=== PATIENT | female | born 1990 | race Caucasian/White ===

== ENCOUNTER 2016-10-16 23:53 | Emergency (ER) | payer OTHER ==
[~2016-10-16] VITALS: Ht 160 cm; Wt 69.6 kg
[~2016-10-16 23:53] MED LIST: AMOXICILLIN500 MG PO; BACTRIM DS1 TAB PO; CIPROFLOXACIN500 M1 PO; CIPROFLOXACN500 MG PO; DARVOCET-N 100100 MG OR; FLUZONE SPLT1 M1 IM; FOLIC ACID1 MG OR; IBUPROFEN600 MG PO; LORTAB 7.5-3251 TAB PO; LORTAB 7.57.5 MG PO; MACRODANTIN100 MG OR; METRONIDAZOL500 MG PO; NAPROSYN500 MG OR; NAPROSYN500 MG PO; NO MEDS; NORCO1 TA2 PO; NYSTATIN TOP; OBTREX DHA PO; PRE-NATAL OR; PRENATA3 OR; PRENATAL1 TA1 PO; SPRINTEC 2828 DAY PO; TORADOL OR; TRIAM/NYSTAT TOP; TUBERSOL5 MG/0.1 M ID; ULTRAM50 M1 PO; ULTRAM50 MG OR; VISTARIL50 MG PO; ZOFRAN ODT4 MG PO; ZOFRAN4 MG/TAB PO
[2016-10-17] MEDS ORDERED: TRAMADOL HYDROC50 MG PO (00:30)
[2016-10-17] MEDS ORDERED: MOTRIN800 MG PO (00:30)
[2016-10-17 00:40] VITALS: BP 112/76
== END 2016-10-17 00:44 | disposition home or self-care (01) | DRG 552 ==
LOC: ED 23:53
DX: M54.42 Lumbago with sciatica, left side (principal); M54.41 Lumbago with sciatica, right side

== ENCOUNTER 2017-01-17 11:49 | Emergency (ER) | payer SELFPAY ==
[~2017-01-17] VITALS: Ht 160 cm; Wt 68.8 kg
[~2017-01-17 11:49] MED LIST changes: +MOTRIN800 MG PO; +TRAMADOL HYDROC50 MG PO
[2017-01-17] MEDS ORDERED: FIORICET PO (12:13)
[2017-01-17 12:50] VITALS: BP 97/64
== END 2017-01-17 12:55 | disposition home or self-care (01) | DRG 103 ==
LOC: ED 11:49
DX: G43.909 Migraine, unspecified, not intractable, without status migrainosus (principal); H53.143 Visual discomfort, bilateral; R11.0 Nausea; R42 Dizziness and giddiness

== ENCOUNTER 2017-06-14 08:06 | Day surgery (SDC) | payer OTHER ==
[~2017-06-14] VITALS: Ht 160 cm; Wt 68.0 kg
[~2017-06-14 08:06] MED LIST changes: +FIORICET PO
[2017-06-14 10:16] VITALS: BP 99/55
== END 2017-06-14 10:45 | disposition home or self-care (01) | DRG 395 ==
LOC: ORM 08:06
PROVIDERS: ATTEND Surgery
DX: K43.9 Ventral hernia without obstruction or gangrene (principal); R10.32 Left lower quadrant pain; Z53.21 Procedure and treatment not carried out due to patient leaving prior to being seen by health care provider

== ENCOUNTER 2017-07-27 15:32 | Emergency (ER) | payer OTHER ==
[~2017-07-27] VITALS: Ht 160 cm; Wt 68.2 kg
[2017-07-27 16:42] LABS: HEMATOCRIT 41.7 % (37.0-47.0); HEMOGLOBIN 14.6 g/dl (12.0-16.0); IMMATURE GRANULOCYTES 0.4 % (0.0-1.0); MEAN CELL VOLUME 90.8 fL CALC (80.0-100.0); MEAN CORPUSCULAR HGB 31.8 pG CALC (26.0-32.0); NEUT# 4.72 thou/uL (2.00-7.15); RED BLOOD COUNT 4.59 mill/uL (4.20-5.60); RED CELL DISTRI WIDTH 12.2 % (11.5-15.5)
[2017-07-27 16:48] LABS: URINE BILIRUBIN - DIPSTICK NEGATIVE (NEGATIVE); URINE BLOOD DIPSTICK NEGATIVE (NEGATIVE); URINE COLOR YELLOW; URINE GLUCOSE - DIPSTICK NEGATIVE (NEGATIVE); URINE KETONE NEGATIVE (NEGATIVE); URINE LEUK ESTERASE NEGATIVE (NEGATIVE); URINE NITRITE - DIPSTICK NEGATIVE (Negative); URINE PH 5.5 (4.5-8.0); URINE PROTEIN - DIPSTICK NEGATIVE (NEG-TRACE); URINE SPECIFIC GRAVITY >=1.030; URINE UROBILINOGEN - DIPSTICK 0.2 E.U./dL (0.2)
[2017-07-27 16:50] LABS: URINE CLARITY CLEAR
[2017-07-27 16:51] LABS: BARBITURATES NEGATIVE (NEGATIVE); COCAINE NEGATIVE (NEGATIVE); METHADONE NEGATIVE (NEGATIVE); OXCYCODONE NEGATIVE (NEGATIVE); TETRAHYDROCANNABIONOL NEGATIVE (NEGATIVE); TRICYLIC ANTIDEPRESSANTS NEGATIVE (NEGATIVE)
[2017-07-27 19:18] LABS: ALBUMIN 4.9 g/dL (3.2-5.0); ALKALINE PHOSPHATASE 69 u/l (38-126); ANION GAP 16 (6-22 (CALC)); BILIRUBIN, TOTAL 0.6 mg/dL (0.0-1.4); BUN 11 mg/dL (7-17); BUN/CREATININE RATIO 17 (12-20 (CALC)); CARBON DIOXIDE 24 mmol/l (22-30); CHLORIDE 109 mmol/l (95-108); CREATININE 0.6 mg/dL (0.5-1.0); GFR > 60 ML/MIN (>=60 (CALC)); GFR FOR AFR.AMER. > 60 ML/MIN (>=60 (CALC)); POTASSIUM 4.1 mmol/l (3.5-5.1); SGOT/AST 25 u/l (14-36); SGPT/ALT 33 u/l (9-52); SODIUM 145 mmol/l (137-146); TOTAL PROTEIN 7.5 g/dL (6.3-8.2)
[2017-07-27 22:00] VITALS: BP 117/60
== END 2017-07-27 22:02 | disposition home or self-care (01) | DRG 395 ==
LOC: ED 15:32
PROVIDERS: Emergency Medicine
DX: K43.9 Ventral hernia without obstruction or gangrene (principal); R10.33 Periumbilical pain; R11.0 Nausea; R19.7 Diarrhea, unspecified
CPT/HCPCS: Q9967

== ENCOUNTER 2017-09-06 06:54 | Day surgery (SDC) | payer OTHER ==
[~2017-09-06] VITALS: Ht 160 cm; Wt 65.8 kg
[2017-09-06] MEDS ORDERED: MOTRIN800 MG PO (09:51)
[2017-09-06] MEDS ORDERED: PERCOCET 5/325M1 TAB PO (09:52)
[2017-09-06 10:22] VITALS: BP 100/65
== END 2017-09-06 10:58 | disposition home or self-care (01) | DRG 355 ==
LOC: ORM 06:54
PROVIDERS: ATTEND Surgery
PROC: 0WUF4JZ Supplement Abdominal Wall with Synthetic Substitute, Percutaneous Endoscopic Approach (ICD-10-PCS; principal; 2017-09-06)
DX: K43.0 Incisional hernia with obstruction, without gangrene (principal); F41.9 Anxiety disorder, unspecified; Z87.891 Personal history of nicotine dependence

== ENCOUNTER 2018-04-08 15:24 | Emergency (ER) | payer OTHER ==
[~2018-04-08] VITALS: Ht 160 cm; Wt 70.0 kg
[~2018-04-08 15:24] MED LIST changes: +PERCOCET 5/325M1 TAB PO
[2018-04-08] MEDS ORDERED: PAROXETINE10 MG PO (15:40)
[2018-04-08] MEDS ORDERED: NAPROSYN500 MG PO (16:41)
[2018-04-08] MEDS ORDERED: TYLENOL # 31 TA1 PO (16:41)
[2018-04-08 16:50] VITALS: BP 103/74
== END 2018-04-08 16:50 | disposition home or self-care (01) ==
LOC: ED 15:24
DX: S80.01XA Contusion of right knee, initial encounter (principal); F32.9 Major depressive disorder, single episode, unspecified; F41.9 Anxiety disorder, unspecified; W10.9XXA Fall (on) (from) unspecified stairs and steps, initial encounter; Y92.009 Unspecified place in unspecified non-institutional (private) residence as the place of occurrence of the external cause

== ENCOUNTER 2018-07-18 06:23 | Day surgery (SDC) | payer OTHER ==
[~2018-07-18 06:23] MED LIST changes: +PAROXETINE10 MG PO; +TYLENOL # 31 TA1 PO; +[UNRECOGNIZED DRUG - REMARK]
[2018-07-18] MEDS ORDERED: MOTRIN800 MG PO (09:39)
[2018-07-18] MEDS ORDERED: PERCOCET 5/325M1 TAB PO (09:39)
[2018-07-18 10:31] VITALS: BP 107/63
== END 2018-07-18 10:38 | disposition home or self-care (01) ==
LOC: ORM 06:23
PROVIDERS: ATTEND Surgery
DX: K43.0 Incisional hernia with obstruction, without gangrene (principal)
CPT/HCPCS: J0131; J2710

== ENCOUNTER 2019-05-15 20:41 | Emergency (ER) | payer OTHER ==
[~2019-05-15] VITALS: Ht 160 cm; Wt 71.3 kg
[2019-05-15] MEDS ORDERED: TAM75CAP PO (21:50)
[2019-05-15 21:55] VITALS: BP 107/78
== END 2019-05-15 21:55 | disposition home or self-care (01) ==
LOC: ED 20:41
DX: J11.1 Influenza due to unidentified influenza virus with other respiratory manifestations (principal)

== ENCOUNTER 2019-05-24 13:40 | Emergency (ER) | payer OTHER ==
[~2019-05-24] VITALS: Ht 160 cm; Wt 71.0 kg
[2019-05-24 13:40] VITALS: BP 114/83
[~2019-05-24 13:40] MED LIST changes: +TAM75CAP PO
[2019-05-24 14:40] LABS: HEMATOCRIT 40.2 % (37.0-47.0); HEMOGLOBIN 13.9 g/dl (12.0-16.0); IMMATURE GRANULOCYTES 0.4 % (0.0-5.0); MEAN CELL VOLUME 88.4 fL CALC (80.0-100.0); MEAN CORPUSCULAR HGB 30.5 pG CALC (26.0-32.0); MEAN CORPUSCULAR HGB CONC 34.6 g/L CALC (32.0-36.0); NEUT# 5.79 thou/uL (2.00-7.15); RED BLOOD COUNT 4.55 mill/uL (4.20-5.60); RED CELL DISTRI WIDTH 12.6 % (11.5-15.5)
[2019-05-24 15:04] LABS: ANION GAP 16 (6-22 (CALC)); BUN 5 mg/dL (7-17); BUN/CREATININE RATIO 10 (12-20 (CALC)); CARBON DIOXIDE 23 mmol/l (22-30); CHLORIDE 105 mmol/l (95-108); CREATININE 0.5 mg/dL (0.5-1.0); GFR > 60 ML/MIN (>=60 (CALC)); GFR FOR AFR.AMER. > 60 ML/MIN (>=60 (CALC)); POTASSIUM 3.8 mmol/l (3.5-5.1); SODIUM 141 mmol/l (137-146)
[2019-05-24] MEDS ORDERED: ZPAK PO (16:07)
== END 2019-05-24 16:46 | disposition home or self-care (01) ==
LOC: ED 13:40
PROVIDERS: Family Medicine
DX: J40 Bronchitis, not specified as acute or chronic (principal); M94.0 Chondrocostal junction syndrome [Tietze]

== ENCOUNTER 2019-06-24 | Emergency (ER) | payer OTHER ==
[~2019-06-24] MED LIST changes: +ZPAK PO
[2019-06-24 12:53] LABS: HEMATOCRIT 41.7 % (37.0-47.0); HEMOGLOBIN 14.2 g/dl (12.0-16.0); IMMATURE GRANULOCYTES 0.3 % (0.0-5.0); MEAN CELL VOLUME 93.1 fL CALC (80.0-100.0); MEAN CORPUSCULAR HGB 31.7 pG CALC (26.0-32.0); MEAN CORPUSCULAR HGB CONC 34.1 g/L CALC (32.0-36.0); NEUT# 7.24 thou/uL (2.00-7.15); RED BLOOD COUNT 4.48 mill/uL (4.20-5.60); RED CELL DISTRI WIDTH 13.3 % (11.5-15.5)
[2019-06-24 13:15] LABS: URINE BILIRUBIN - DIPSTICK NEGATIVE (NEGATIVE); URINE BLOOD DIPSTICK NEGATIVE (NEGATIVE); URINE COLOR YELLOW; URINE GLUCOSE - DIPSTICK NEGATIVE (NEGATIVE); URINE KETONE NEGATIVE (NEGATIVE); URINE LEUK ESTERASE TRACE (NEGATIVE); URINE NITRITE - DIPSTICK NEGATIVE (Negative); URINE PROTEIN - DIPSTICK NEGATIVE (NEG-TRACE); URINE SPECIFIC GRAVITY 1.025; URINE UROBILINOGEN - DIPSTICK 0.2 E.U./dL (0.2)
[2019-06-24 13:20] LABS: ALBUMIN 4.8 g/dL (3.2-5.0); ALKALINE PHOSPHATASE 75 u/l (38-126); ANION GAP 14 (6-22 (CALC)); BILIRUBIN, TOTAL 0.8 mg/dL (0.0-1.4); BUN 10 mg/dL (7-17); BUN/CREATININE RATIO 18 (12-20 (CALC)); CARBON DIOXIDE 26 mmol/l (22-30); CHLORIDE 107 mmol/l (95-108); CREATININE 0.6 mg/dL (0.5-1.0); GFR > 60 ML/MIN (>=60 (CALC)); GFR FOR AFR.AMER. > 60 ML/MIN (>=60 (CALC)); LIPASE 164 u/l (23-300); POTASSIUM 4.3 mmol/l (3.5-5.1); SGOT/AST 26 u/l (14-36); SODIUM 143 mmol/l (137-146)
[2019-11-06] MEDS ORDERED: PERCOCET 5/321 COMBO PO (10:57)
== END 2019-06-24 16:10 | disposition home or self-care (01) ==
PROVIDERS: Family Medicine
DX: R10.32 Left lower quadrant pain (principal); F17.210 Nicotine dependence, cigarettes, uncomplicated; Z98.890 Other specified postprocedural states
CPT/HCPCS: Q9967

== ENCOUNTER 2019-08-26 | Emergency (ER) | payer OTHER ==
[2019-08-26 10:36] LABS: URINE BILIRUBIN - DIPSTICK NEGATIVE (NEGATIVE); URINE BLOOD DIPSTICK LARGE (NEGATIVE); URINE COLOR YELLOW; URINE GLUCOSE - DIPSTICK NEGATIVE (NEGATIVE); URINE KETONE NEGATIVE (NEGATIVE); URINE LEUK ESTERASE NEGATIVE (NEGATIVE); URINE NITRITE - DIPSTICK NEGATIVE (Negative); URINE PROTEIN - DIPSTICK NEGATIVE (NEG-TRACE); URINE SPECIFIC GRAVITY 1.025; URINE UROBILINOGEN - DIPSTICK 0.2 E.U./dL (0.2)
[2019-08-26 10:37] LABS: URINE EPITHELIAL CELLS MODERATE EPI/hpf (0-FEW); URINE RBC 25-50 RBC/hpf (0-5)
[2019-08-26] MEDS ORDERED: TRAMADOL HYDROC50 MG PO (10:59)
[2019-08-26] MEDS ORDERED: FLEXERIL PO (10:59)
[2019-11-06] MEDS ORDERED: PERCOCET 5/321 COMBO PO (10:57)
== END 2019-08-26 11:05 | disposition home or self-care (01) ==
DX: S39.012A Strain of muscle, fascia and tendon of lower back, initial encounter (principal); F17.200 Nicotine dependence, unspecified, uncomplicated; X50.0XXA Overexertion from strenuous movement or load, initial encounter; Y93.F2 Activity, caregiving, lifting; Y92.89 Other specified places as the place of occurrence of the external cause; Y99.0 Civilian activity done for income or pay

== ENCOUNTER 2019-10-26 | Emergency (ER) | payer OTHER ==
[~2019-10-26] MED LIST changes: +FLEXERIL PO
[2019-10-26 18:39] LABS: HEMATOCRIT 41.1 % (37.0-47.0); HEMOGLOBIN 14.7 g/dl (12.0-16.0); IMMATURE GRANULOCYTES 0.3 % (0.0-5.0); MEAN CELL VOLUME 88.2 fL CALC (80.0-100.0); MEAN CORPUSCULAR HGB 31.5 pG CALC (26.0-32.0); MEAN CORPUSCULAR HGB CONC 35.8 g/dL CAL (32.0-36.0); NEUT# 7.63 thou/uL (2.00-7.15); RED BLOOD COUNT 4.66 mill/uL (4.20-5.60); RED CELL DISTRI WIDTH 12.5 % (11.5-15.5)
[2019-10-26 19:17] LABS: ALBUMIN 4.7 g/dL (3.2-5.0); ALKALINE PHOSPHATASE 72 u/l (38-126); ANION GAP 13 (6-22 (CALC)); BILIRUBIN, TOTAL 0.7 mg/dL (0.0-1.4); BUN 9 mg/dL (7-17); BUN/CREATININE RATIO 15 (12-20 (CALC)); CARBON DIOXIDE 22 mmol/l (22-30); CHLORIDE 106 mmol/l (95-108); CREATININE 0.6 mg/dL (0.5-1.0); GFR > 60 ML/MIN (>=60 (CALC)); GFR FOR AFR.AMER. > 60 ML/MIN (>=60 (CALC)); LIPASE 114 u/l (23-300); POTASSIUM 3.8 mmol/l (3.5-5.1); SGOT/AST 33 u/l (14-36); SODIUM 137 mmol/l (137-146)
[2019-10-26 19:18] LABS: URINE BILIRUBIN - DIPSTICK NEGATIVE (NEGATIVE); URINE BLOOD DIPSTICK NEGATIVE (NEGATIVE); URINE COLOR YELLOW; URINE GLUCOSE - DIPSTICK NEGATIVE (NEGATIVE); URINE KETONE NEGATIVE (NEGATIVE); URINE NITRITE - DIPSTICK NEGATIVE (Negative); URINE PH 5.5 (4.5-8.0); URINE PROTEIN - DIPSTICK NEGATIVE (NEG-TRACE); URINE UROBILINOGEN - DIPSTICK 0.2 E.U./dL (0.2)
[2019-10-26 19:47] LABS: URINE LEUK ESTERASE SMALL (NEGATIVE)
[2019-10-26 19:55] LABS: URINE SQUAMOUS EPITHELIAL CELL FEW EPI/hpf (0-FEW)
[2019-10-26] MEDS ORDERED: PROTONIX40 M2 PO ×2 (20:40)
[2019-10-26] MEDS ORDERED: LIBRAX1 CAP PO (20:40)
[2019-11-06] MEDS ORDERED: PERCOCET 5/321 COMBO PO (10:57)
== END 2019-10-26 20:50 | disposition home or self-care (01) ==
PROVIDERS: Family Medicine
DX: R10.13 Epigastric pain (principal); R10.11 Right upper quadrant pain; F17.200 Nicotine dependence, unspecified, uncomplicated
CPT/HCPCS: Q9967

== ENCOUNTER 2019-11-20 11:00 | Day surgery (SDC) | payer OTHER ==
[~2019-11-20 11:00] MED LIST changes: +LIBRAX1 CAP PO; +PERCOCET 5/321 COMBO PO; +PROTONIX40 M2 PO
[2019-11-20] MEDS ORDERED: PERCOCET 5/325M1 TAB PO (13:06)
[2019-11-20 14:04] VITALS: BP 103/66
== END 2019-11-20 14:12 | disposition home or self-care (01) ==
LOC: ENDO 11:00 → ORM 11-26 07:30 → ENDO 11-26 07:30
PROVIDERS: ATTEND Surgery
DX: K81.1 Chronic cholecystitis (principal); Z11.59 Encounter for screening for other viral diseases
CPT/HCPCS: J0131; Q9967

== ENCOUNTER 2020-01-13 13:28 | Emergency (ER) | payer OTHER ==
[~2020-01-13] VITALS: Ht 160 cm; Wt 75.0 kg
[2020-01-13 14:02] LABS: HEMOGLOBIN 13.2 g/dl (12.0-16.0); IMMATURE GRANULOCYTES 0.1 % (0.0-5.0); MEAN CELL VOLUME 88.6 fL CALC (80.0-100.0); MEAN CORPUSCULAR HGB 30.8 pG CALC (26.0-32.0); MEAN CORPUSCULAR HGB CONC 34.7 g/dL CAL (32.0-36.0); NEUT# 5.07 thou/uL (2.00-7.15); RED BLOOD COUNT 4.29 mill/uL (4.20-5.60); RED CELL DISTRI WIDTH 12.3 % (11.5-15.5)
[2020-01-13 14:24] LABS: ANION GAP 10 (6-22 (CALC)); BUN 8 mg/dL (7-17); BUN/CREATININE RATIO 12 (12-20 (CALC)); CARBON DIOXIDE 22 mmol/l (22-30); CHLORIDE 108 mmol/l (95-108); CREATININE 0.6 mg/dL (0.5-1.0); GFR > 60 ML/MIN (>=60 (CALC)); GFR FOR AFR.AMER. > 60 ML/MIN (>=60 (CALC)); POTASSIUM 3.5 mmol/l (3.5-5.1); SODIUM 136 mmol/l (137-146)
[2020-01-13 15:53] VITALS: BP 107/68
== END 2020-01-13 15:54 | disposition home or self-care (01) ==
LOC: ED 13:28
PROVIDERS: Family Medicine
DX: R07.9 Chest pain, unspecified (principal)

== ENCOUNTER 2020-01-23 12:22 | Emergency (ER) | payer OTHER ==
[~2020-01-23] VITALS: Ht 160 cm; Wt 70.0 kg
[2020-01-23] MEDS ORDERED: IBUPROFEN600 MG PO (13:21)
[2020-01-23 13:26] VITALS: BP 98/68
== END 2020-01-23 13:34 | disposition home or self-care (01) | DRG 563 ==
LOC: ED 12:22
DX: S86.911A Strain of unspecified muscle(s) and tendon(s) at lower leg level, right leg, initial encounter (principal); X50.0XXA Overexertion from strenuous movement or load, initial encounter; Y92.89 Other specified places as the place of occurrence of the external cause; Y99.0 Civilian activity done for income or pay

== ENCOUNTER 2020-05-13 14:27 | Emergency (ER) | payer OTHER ==
[~2020-05-13] VITALS: Ht 160 cm; Wt 65.2 kg
[2020-05-13] MEDS ORDERED: HYDROCO/APAP1 TA9 PO (15:25)
[2020-05-13 15:43] VITALS: BP 103/76
== END 2020-05-13 15:45 | disposition home or self-care (01) ==
LOC: ED 14:27
DX: S62.336A Displaced fracture of neck of fifth metacarpal bone, right hand, initial encounter for closed fracture (principal); F32.9 Major depressive disorder, single episode, unspecified; F41.9 Anxiety disorder, unspecified; W22.09XA Striking against other stationary object, initial encounter; Y92.009 Unspecified place in unspecified non-institutional (private) residence as the place of occurrence of the external cause

== ENCOUNTER 2020-05-15 21:50 | Emergency (ER) | payer OTHER ==
[~2020-05-15] VITALS: Ht 160 cm; Wt 65.0 kg
[~2020-05-15 21:50] MED LIST changes: +HYDROCO/APAP1 TA9 PO
[2020-05-15] MEDS ORDERED: IBUPROFEN600 MG PO (23:14)
[2020-05-15 23:45] VITALS: BP 128/78
== END 2020-05-15 23:45 | disposition home or self-care (01) ==
LOC: ED 21:50
DX: S62.306A Unspecified fracture of fifth metacarpal bone, right hand, initial encounter for closed fracture (principal); W22.09XA Striking against other stationary object, initial encounter; F32.9 Major depressive disorder, single episode, unspecified; F41.9 Anxiety disorder, unspecified

== ENCOUNTER 2020-06-19 19:35 | Emergency (ER) | payer OTHER ==
[~2020-06-19] VITALS: Ht 160 cm; Wt 65.0 kg
[2020-06-19 22:10] VITALS: BP 110/81
== END 2020-06-19 22:10 | disposition home or self-care (01) ==
LOC: ED 19:35
DX: S62.309D Unspecified fracture of unspecified metacarpal bone, subsequent encounter for fracture with routine healing (principal); F41.9 Anxiety disorder, unspecified; X58.XXXD Exposure to other specified factors, subsequent encounter

== ENCOUNTER 2020-12-18 21:16 | Emergency (ER) | payer OTHER ==
[~2020-12-18] VITALS: Ht 160 cm; Wt 68.0 kg
[2020-12-18 21:28] VITALS: BP 102/65
== END 2020-12-18 22:42 | disposition home or self-care (01) ==
LOC: ED 21:16
DX: S61.216A Laceration without foreign body of right little finger without damage to nail, initial encounter (principal); F41.9 Anxiety disorder, unspecified; F32.9 Major depressive disorder, single episode, unspecified; W23.0XXA Caught, crushed, jammed, or pinched between moving objects, initial encounter; Y93.89 Activity, other specified; Y92.009 Unspecified place in unspecified non-institutional (private) residence as the place of occurrence of the external cause; Z87.81 Personal history of (healed) traumatic fracture

== ENCOUNTER 2021-02-08 20:10 | Emergency (ER) | payer OTHER ==
[~2021-02-08] VITALS: Ht 160 cm; Wt 68.0 kg
[2021-02-08 21:36] LABS: HEMATOCRIT 40.2 % (37.0-47.0); IMMATURE GRANULOCYTES 0.1 % (0.0-5.0); MEAN CELL VOLUME 92.4 fL CALC (80.0-100.0); MEAN CORPUSCULAR HGB 32.2 pG CALC (26.0-32.0); MEAN CORPUSCULAR HGB CONC 34.8 g/dL CAL (32.0-36.0); NEUT# 6.03 thou/uL (2.00-7.15); RED BLOOD COUNT 4.35 mill/uL (4.20-5.60); RED CELL DISTRI WIDTH 12.4 % (11.5-15.5)
[2021-02-08 21:56] LABS: ALBUMIN 4.2 g/dL (3.2-5.0); ALKALINE PHOSPHATASE 63 u/l (38-126); AMYLASE 62 u/l (30-110); ANION GAP 13 (6-22 (CALC)); BILIRUBIN, TOTAL 0.5 mg/dL (0.0-1.4); BUN 13 mg/dL (7-17); BUN/CREATININE RATIO 24 (12-20 (CALC)); CARBON DIOXIDE 22 mmol/l (22-30); CHLORIDE 106 mmol/l (95-108); CREATININE 0.6 mg/dL (0.5-1.0); GFR > 60 ML/MIN (>=60 (CALC)); GFR FOR AFR.AMER. > 60 ML/MIN (>=60 (CALC)); LIPASE 149 u/l (23-300); POTASSIUM 3.8 mmol/l (3.5-5.1); SGOT/AST 29 u/l (14-36); SODIUM 138 mmol/l (137-146); TOTAL PROTEIN 6.8 g/dL (6.3-8.2)
[2021-02-09 00:45] LABS: URINE BILIRUBIN - DIPSTICK NEGATIVE (NEGATIVE); URINE BLOOD DIPSTICK NEGATIVE (NEGATIVE); URINE COLOR YELLOW; URINE GLUCOSE - DIPSTICK NEGATIVE (NEGATIVE); URINE KETONE NEGATIVE (NEGATIVE); URINE LEUK ESTERASE NEGATIVE (NEGATIVE); URINE NITRITE - DIPSTICK NEGATIVE (Negative); URINE PH 6.5 (4.5-8.0); URINE PROTEIN - DIPSTICK NEGATIVE (NEG-TRACE); URINE SPECIFIC GRAVITY 1.025; URINE UROBILINOGEN - DIPSTICK 0.2 E.U./dL (0.2)
[2021-02-09] MEDS ORDERED: NAPROXEN500 MG PO (00:48)
[2021-02-09] MEDS ORDERED: AMOXICILLIN500 MG PO (00:48)
[2021-02-11 01:00] VITALS: BP 102/70
== END 2021-02-09 01:00 | disposition home or self-care (01) ==
LOC: ED 20:10
PROVIDERS: Emergency Medicine
DX: J02.9 Acute pharyngitis, unspecified (principal); R10.32 Left lower quadrant pain; F41.9 Anxiety disorder, unspecified; F32.9 Major depressive disorder, single episode, unspecified; Z20.822 Contact with and (suspected) exposure to COVID-19
CPT/HCPCS: Q9967

== ENCOUNTER 2021-02-12 12:54 | Emergency (ER) | payer OTHER ==
[~2021-02-12] VITALS: Ht 160 cm; Wt 78.0 kg
[~2021-02-12 12:54] MED LIST changes: +NAPROXEN500 MG PO
[2021-02-12 15:14] VITALS: BP 112/62
== END 2021-02-12 15:23 | disposition home or self-care (01) ==
LOC: ED 12:54
DX: B34.9 Viral infection, unspecified (principal); F32.9 Major depressive disorder, single episode, unspecified; F41.9 Anxiety disorder, unspecified; Z20.822 Contact with and (suspected) exposure to COVID-19

== ENCOUNTER 2021-06-15 13:13 | Emergency (ER) | payer OTHER ==
[~2021-06-15] VITALS: Ht 160 cm; Wt 75.0 kg
[2021-06-15 17:27] VITALS: BP 115/74
== END 2021-06-15 17:50 | disposition home or self-care (01) ==
LOC: ED 13:13
DX: J06.9 Acute upper respiratory infection, unspecified (principal); F32.A Depression, unspecified; F41.9 Anxiety disorder, unspecified; Z20.822 Contact with and (suspected) exposure to COVID-19

== ENCOUNTER 2021-07-04 16:05 | Emergency (ER) | payer OTHER ==
[~2021-07-04] VITALS: Ht 160 cm; Wt 74.5 kg
[2021-07-04] MEDS ORDERED: MELOXICAM7.5 MG PO (16:24)
[2021-07-04 17:05] VITALS: BP 118/78
[2021-07-04] MEDS ORDERED: HYDROCO/APAP1 TA9 PO (17:15)
== END 2021-07-04 17:05 | disposition home or self-care (01) ==
LOC: ED 16:05
DX: M25.561 Pain in right knee (principal); F32.A Depression, unspecified; F41.9 Anxiety disorder, unspecified

== ENCOUNTER 2021-07-06 14:10 | Emergency (ER) | payer OTHER ==
[~2021-07-06] VITALS: Ht 160 cm; Wt 68.2 kg
[~2021-07-06 14:10] MED LIST changes: +MELOXICAM7.5 MG PO
[2021-07-06 15:56] LABS: URINE BILIRUBIN - DIPSTICK NEGATIVE (NEGATIVE); URINE BLOOD DIPSTICK NEGATIVE (NEGATIVE); URINE COLOR YELLOW; URINE GLUCOSE - DIPSTICK NEGATIVE (NEGATIVE); URINE KETONE NEGATIVE (NEGATIVE); URINE LEUK ESTERASE NEGATIVE (NEGATIVE); URINE PH 7.5 (4.5-8.0); URINE PROTEIN - DIPSTICK NEGATIVE (NEG-TRACE); URINE UROBILINOGEN - DIPSTICK 0.2 E.U./dL (0.2)
[2021-07-06 16:01] LABS: URINE NITRITE - DIPSTICK NEGATIVE (Negative)
[2021-07-06] MEDS ORDERED: FIORICET PO (16:26)
[2021-07-06 17:08] VITALS: BP 108/66
== END 2021-07-06 17:08 | disposition home or self-care (01) ==
LOC: ED 14:10
PROVIDERS: Emergency Medicine
DX: R51.9 Headache, unspecified (principal); J44.9 Chronic obstructive pulmonary disease, unspecified; F41.9 Anxiety disorder, unspecified; F32.A Depression, unspecified; Z20.822 Contact with and (suspected) exposure to COVID-19

== ENCOUNTER 2021-08-10 22:42 | Emergency (ER) | payer OTHER ==
[~2021-08-10] VITALS: Ht 160 cm; Wt 72.0 kg
[2021-08-10 23:25] VITALS: BP 110/70
[2021-08-11 00:04] LABS: HEMATOCRIT 41.6 % (37.0-47.0); HEMOGLOBIN 14.4 g/dl (12.0-16.0); IMMATURE GRANULOCYTES 0.3 % (0.0-5.0); MEAN CELL VOLUME 90.2 fL CALC (80.0-100.0); MEAN CORPUSCULAR HGB 31.2 pG CALC (26.0-32.0); MEAN CORPUSCULAR HGB CONC 34.6 g/dL CAL (32.0-36.0); NEUT# 8.15 thou/uL (2.00-7.15); RED BLOOD COUNT 4.61 mill/uL (4.20-5.60); RED CELL DISTRI WIDTH 12.6 % (11.5-15.5)
[2021-08-11 00:23] LABS: ALBUMIN 4.7 g/dL (3.2-5.0); ALKALINE PHOSPHATASE 65 u/l (38-126); ANION GAP 13 (6-22 (CALC)); BUN 10 mg/dL (7-17); BUN/CREATININE RATIO 14 (12-20 (CALC)); CARBON DIOXIDE 26 mmol/l (22-30); CHLORIDE 105 mmol/l (95-108); CREATININE 0.7 mg/dL (0.5-1.0); GFR > 60 ML/MIN (>=60 (CALC)); GFR FOR AFR.AMER. > 60 ML/MIN (>=60 (CALC)); POTASSIUM 3.4 mmol/l (3.5-5.1); SGOT/AST 21 u/l (14-36); SODIUM 141 mmol/l (137-146); TOTAL PROTEIN 7.4 g/dL (6.3-8.2)
[2021-08-11 00:27] LABS: BILIRUBIN, TOTAL 0.8 mg/dL (0.0-1.4)
[2021-08-11] MEDS ORDERED: VOLTAREN75 MG PO (01:05)
[2021-08-11] MEDS ORDERED: KEFLEX500 MG PO (01:05)
== END 2021-08-11 01:31 | disposition home or self-care (01) ==
LOC: ED 22:42
PROVIDERS: Family Medicine
DX: L03.116 Cellulitis of left lower limb (principal); J44.9 Chronic obstructive pulmonary disease, unspecified; F41.9 Anxiety disorder, unspecified

== ENCOUNTER 2021-11-10 18:55 | Emergency (ER) | payer OTHER ==
[~2021-11-10] VITALS: Ht 160 cm; Wt 70.0 kg
[~2021-11-10 18:55] MED LIST changes: +KEFLEX500 MG PO; +VOLTAREN75 MG PO
[2021-11-10 19:38] VITALS: BP 106/78
[2021-11-10 19:45] LABS: HEMATOCRIT 42.9 % (37.0-47.0); HEMOGLOBIN 14.9 g/dl (12.0-16.0); IMMATURE GRANULOCYTES 0.4 % (0.0-5.0); MEAN CELL VOLUME 92.3 fL CALC (80.0-100.0); MEAN CORPUSCULAR HGB CONC 34.7 g/dL CAL (32.0-36.0); NEUT# 12.96 thou/uL (2.00-7.15); RED BLOOD COUNT 4.65 mill/uL (4.20-5.60); RED CELL DISTRI WIDTH 12.9 % (11.5-15.5)
[2021-11-10 19:47] LABS: URINE BILIRUBIN - DIPSTICK NEGATIVE (NEGATIVE); URINE BLOOD DIPSTICK MODERATE (NEGATIVE); URINE COLOR YELLOW; URINE GLUCOSE - DIPSTICK NEGATIVE (NEGATIVE); URINE KETONE NEGATIVE (NEGATIVE); URINE PROTEIN - DIPSTICK NEGATIVE (NEG-TRACE); URINE UROBILINOGEN - DIPSTICK 0.2 E.U./dL (0.2)
[2021-11-10 19:49] LABS: URINE LEUK ESTERASE LARGE (NEGATIVE); URINE NITRITE - DIPSTICK NEGATIVE (Negative)
[2021-11-10 19:50] LABS: HCG SERUM/URINE (NEG/POS) NEGATIVE (NEGATIVE)
[2021-11-10 20:00] VITALS: BP 107/79
[2021-11-10 20:01] LABS: ALBUMIN 4.4 g/dL (3.2-5.0); ALKALINE PHOSPHATASE 67 u/l (38-126); ANION GAP 13 (6-22 (CALC)); BILIRUBIN, TOTAL 0.7 mg/dL (0.0-1.4); BUN 4 mg/dL (7-17); BUN/CREATININE RATIO 6 (12-20 (CALC)); CARBON DIOXIDE 26 mmol/l (22-30); CHLORIDE 105 mmol/l (95-108); CREATININE 0.7 mg/dL (0.5-1.0); GFR > 60 ML/MIN (>=60 (CALC)); GFR FOR AFR.AMER. > 60 ML/MIN (>=60 (CALC)); POTASSIUM 3.7 mmol/l (3.5-5.1); SGOT/AST 19 u/l (14-36); SODIUM 141 mmol/l (137-146); TOTAL PROTEIN 7.4 g/dL (6.3-8.2)
[2021-11-10 20:02] LABS: URINE SQUAMOUS EPITHELIAL CELL FEW EPI/hpf (0-FEW); URINE WBC 20-50 WBC/hpf (0-5)
[2021-11-10 20:13] LABS: MYOGLOBIN 11 ng/mL (0 - 62)
[2021-11-10 21:00] VITALS: BP 117/79
[2021-11-10 21:30] VITALS: BP 109/75
[2021-11-10] MEDS ORDERED: KEFLEX500 MG PO (21:46)
[2021-11-10 22:00] VITALS: BP 113/87
== END 2021-11-10 22:21 | disposition home or self-care (01) ==
LOC: ED 18:55
PROVIDERS: Emergency Medicine
DX: R07.89 Other chest pain (principal); N39.0 Urinary tract infection, site not specified; J44.9 Chronic obstructive pulmonary disease, unspecified; F32.A Depression, unspecified; F41.9 Anxiety disorder, unspecified; B96.20 Unspecified Escherichia coli [E. coli] as the cause of diseases classified elsewhere; Z20.822 Contact with and (suspected) exposure to COVID-19

== ENCOUNTER 2021-12-08 20:56 | Emergency (ER) | payer OTHER ==
[~2021-12-08] VITALS: Ht 160 cm; Wt 77.0 kg
[2021-12-08 21:43] VITALS: BP 107/72
[2021-12-08] MEDS ORDERED: PROAIR HFA108 MCG/AC IN (22:03)
[2021-12-08 23:10] VITALS: BP 107/69
== END 2021-12-08 23:10 | disposition home or self-care (01) ==
LOC: ED 20:56
DX: J02.9 Acute pharyngitis, unspecified (principal); F32.A Depression, unspecified; F41.9 Anxiety disorder, unspecified; J44.9 Chronic obstructive pulmonary disease, unspecified; Z20.822 Contact with and (suspected) exposure to COVID-19

== ENCOUNTER 2022-04-08 09:53 | Emergency (ER) | payer OTHER ==
[~2022-04-08] VITALS: Ht 160 cm; Wt 70.6 kg
[2022-04-08] VITALS (8 sets, daily range): BP systolic 105–112; BP diastolic 70–79
[~2022-04-08 09:53] MED LIST changes: +PROAIR HFA108 MCG/AC IN
[2022-04-08] MEDS ORDERED: AMOXICILLIN500 M2 PO (11:53)
== END 2022-04-08 12:30 | disposition home or self-care (01) ==
LOC: ED 09:53
DX: J06.9 Acute upper respiratory infection, unspecified (principal); J44.9 Chronic obstructive pulmonary disease, unspecified; F41.9 Anxiety disorder, unspecified; F32.A Depression, unspecified; Z20.822 Contact with and (suspected) exposure to COVID-19

== ENCOUNTER 2022-05-24 07:45 | Emergency (ER) | payer OTHER ==
[~2022-05-24] VITALS: Ht 160 cm; Wt 66.0 kg
[~2022-05-24 07:45] MED LIST changes: +AMOXICILLIN500 M2 PO
[2022-05-24 07:57] VITALS: BP 107/76
[2022-05-24 08:00] VITALS: BP 111/82
[2022-05-24 08:30] VITALS: BP 106/76
[2022-05-24] MEDS ORDERED: ZPAK PO (08:48)
[2022-05-24 08:55] VITALS: BP 106/76
== END 2022-05-24 09:09 | disposition home or self-care (01) ==
LOC: ED 07:45
DX: J06.9 Acute upper respiratory infection, unspecified (principal); F41.9 Anxiety disorder, unspecified; F32.A Depression, unspecified; J44.9 Chronic obstructive pulmonary disease, unspecified; Z20.822 Contact with and (suspected) exposure to COVID-19

== ENCOUNTER 2022-08-13 11:19 | Emergency (ER) | payer OTHER | END 2022-08-13 11:51 | disposition left against medical advice (07) | DRG 951 | LOC: ED 11:19 → LWOBS 11:50 | DX: Z53.21 Procedure and treatment not carried out due to patient leaving prior to being seen by health care provider (principal) ==

== ENCOUNTER 2022-10-09 22:28 | Emergency (ER) | payer OTHER ==
[~2022-10-09] VITALS: Ht 160 cm; Wt 70.4 kg
[2022-10-09 23:33] VITALS: BP 104/72
[2022-10-09 23:45] VITALS: BP 98/64
[2022-10-09 23:55] LABS: BASO% 0.6 % (0-3); EOS% 1.2 % (0-8); HEMATOCRIT 42.6 % (37.0-47.0); HEMOGLOBIN 14.8 g/dl (12.0-16.0); IMMATURE GRANULOCYTES 0.1 % (0.0-5.0); LYMPH% 14.7 % (15-41); MEAN CELL VOLUME 89.9 fL CALC (80.0-100.0); MEAN CORPUSCULAR HGB 31.2 pG CALC (26.0-32.0); MEAN CORPUSCULAR HGB CONC 34.7 g/dL CAL (32.0-36.0); MONO% 5.6 % (2-13); NEUT# 10.74 thou/uL (2.00-7.15); NEUT% 77.8 % (42-76); RED BLOOD COUNT 4.74 mill/uL (4.20-5.60); RED CELL DISTRI WIDTH 12.3 % (11.5-15.5)
[2022-10-10] VITALS (9 sets, daily range): BP systolic 89–109; BP diastolic 61–79
[2022-10-10 00:17] LABS: ALBUMIN 4.6 g/dL (3.2-5.0); ALKALINE PHOSPHATASE 99 u/l (38-126); ANION GAP 11 (6-22 (CALC)); BUN 14 mg/dL (7-17); BUN/CREATININE RATIO 17 (12-20 (CALC)); CARBON DIOXIDE 25 mmol/l (22-30); CHLORIDE 109 mmol/l (95-108); CREATININE 0.8 mg/dL (0.5-1.0); GFR FOR AFR.AMER. > 60 ML/MIN (>=60 (CALC)); GFR OTHER RACES > 60 ML/MIN (>=60 (CALC)); LIPASE 188 u/l (23-300); POTASSIUM 4.2 mmol/l (3.5-5.1); SGOT/AST 25 u/l (14-36); SODIUM 141 mmol/l (137-146); TOTAL PROTEIN 7.6 g/dL (6.3-8.2)
[2022-10-10 00:18] LABS: BILIRUBIN, TOTAL 0.3 mg/dL (0.02-1.3)
== END 2022-10-10 02:08 | disposition left against medical advice (07) ==
LOC: ED 22:28
PROVIDERS: Family Medicine
DX: R10.31 Right lower quadrant pain (principal); F32.A Depression, unspecified; F41.9 Anxiety disorder, unspecified; J44.9 Chronic obstructive pulmonary disease, unspecified; Z53.29 Procedure and treatment not carried out because of patient's decision for other reasons

== ENCOUNTER 2023-06-28 12:46 | Emergency (ER) | payer OTHER ==
[~2023-06-28] VITALS: Ht 160 cm; Wt 69.0 kg
[2023-06-28] VITALS (8 sets, daily range): BP systolic 65–109; BP diastolic 51–79
[~2023-06-28 12:46] MED LIST changes: +OFLOXACIN0.3 % OD
[2023-06-28] MEDS ORDERED: NAPROXEN500 MG PO (17:10)
[2023-06-28] MEDS ORDERED: FLEXERIL5 M1 PO (17:10)
== END 2023-06-28 17:37 | disposition home or self-care (01) | DRG 103 ==
LOC: ED 12:46
DX: R51.9 Headache, unspecified (principal); M54.2 Cervicalgia; M54.6 Pain in thoracic spine; M54.50 Low back pain, unspecified; V59.50XA Passenger in pick-up truck or van injured in collision with unspecified motor vehicles in traffic accident, initial encounter; Y99.0 Civilian activity done for income or pay

== ENCOUNTER 2024-01-18 12:24 | Emergency (ER) | payer OTHER ==
[~2024-01-18] VITALS: Ht 160 cm; Wt 70.0 kg
[2024-01-18] VITALS (8 sets, daily range): BP systolic 92–116; BP diastolic 63–76
[~2024-01-18 12:24] MED LIST changes: +FLEXERIL5 M1 PO
[2024-01-18] MEDS ORDERED: MEDDOSEPAK PO (14:08)
== END 2024-01-18 14:30 | disposition home or self-care (01) ==
LOC: ED 12:24
DX: U07.1 COVID-19 (principal); J02.9 Acute pharyngitis, unspecified; R52 Pain, unspecified; R05.9 Cough, unspecified; J45.909 Unspecified asthma, uncomplicated; F32.A Depression, unspecified; F41.9 Anxiety disorder, unspecified

== ENCOUNTER 2024-02-12 07:48 | Day surgery (SDC) | payer OTHER ==
[~2024-02-12] VITALS: Ht 160 cm; Wt 70.3 kg
[~2024-02-12 07:48] MED LIST changes: +MEDDOSEPAK PO; +OMEPRAZOLE DR40 MG PO
[2024-02-12] MEDS ORDERED: LACTATED RINGER'S 1,000 ML IV ONE (07:50)
[2024-02-12] MEDS ORDERED: FAMOTIDINE 10MG/ML 2ML SDV IV ONE (07:50)
[2024-02-12 09:17] VITALS: BP 95/75
[2024-02-12] MEDS ORDERED: PROPOFOL 200 MG/20 ML VIAL IV ONE (12:05)
[2024-02-12] MEDS ORDERED: LIDOCAINE HCL 2% 2ML SDV IV ONE (12:05)
[2024-02-12] MEDS ORDERED: GLYCOPYRROLATE 0.2 MG/ML IV ONE (12:05)
== END 2024-02-12 09:27 | disposition home or self-care (01) ==
LOC: ORM 07:48
PROVIDERS: ATTEND Internal Medicine Gastroenterology
DX: K29.50 Unspecified chronic gastritis without bleeding (principal); B96.81 Helicobacter pylori [H. pylori] as the cause of diseases classified elsewhere; K21.00 Gastro-esophageal reflux disease with esophagitis, without bleeding; J45.909 Unspecified asthma, uncomplicated; Z87.891 Personal history of nicotine dependence